=== PATIENT | female | born 1990 | race Caucasian/White ===

== ENCOUNTER 2017-03-21 20:36 | Emergency (ER) | payer SELFPAY ==
[~2017-03-21] VITALS: Ht 152.4 cm; Wt 97.1 kg
[~2017-03-21 20:36] MED LIST: AZIT250T6 PO; METR500T PO
[2017-03-21 20:45] VITALS: BP 117/81
--- NOTE | 2017-03-21 21:12 | PHYS DOC ---
Past Medical History Past Medical History: No Pertinent History Past Surgical History: No Surgical History Alcohol Use: None Drug Use: None Adult General Chief Complaint Chief Complaint: FOOT INJURY PAIN HPI HPI Patient is a 26 year old female with no significant medical history who presents today with right foot pain mostly along the right third and fourth metatarsals. Patient describes the pain as sharp. She rates the pain is mild. Patient states she was walking when she stepped on a rock rolled her foot and fell. Patient denies any loss of consciousness. Review of Systems Review of Systems Constitutional: Denies fever or chills [] Eyes: Denies change in visual acuity, redness, or eye pain [] HENT: Denies nasal congestion or sore throat [] Musculoskeletal: Right foot pain Integument: Denies rash or skin lesions [] Neurologic: Denies headache, focal weakness or sensory changes [] Endocrine: Denies polyuria or polydipsia [] Allergies Allergies Allergies Coded Allergies Type Severity Reaction Last Updated Verified Sulfa (Sulfonamide Antibiotics) Allergy Intermediate Hives 01/24/16 Yes Physical Exam Physical Exam Constitutional: Well developed, well nourished, no acute distress, non-toxic appearance. [] HENT: Normocephalic, atraumatic, bilateral external ears normal, oropharynx moist, no oral exudates, nose normal. [] Skin: Warm, dry, no erythema, no rash. [] Back: No tenderness, no CVA tenderness. [] Extremities: Right foot with no obvious deformity. Small amount of soft tissue swelling on the top of the right foot. Tenderness on palpation along the right third and fourth metatarsals. No pain or tenderness on palpation of the base of the fifth metatarsal of the right foot on navicular bone of the right foot. Full range of motion to the right foot and toes. +2 right pedal pulse. Cap refill less than 2 seconds the right lower extremity. Sensation intact to the right lower extremity. Neurologic: Alert and oriented X 3, normal motor function, normal sensory function, no focal deficits noted. [] Psychologic: Affect normal, judgement normal, mood normal. [] Current Patient Data Vital Signs Vital Signs Date Time Temp Pulse Resp B/P (MAP) Pulse Ox O2 Delivery O2 Flow Rate FiO2 03/21/17 20:45 98.3 100 18 96 Room Air 98.3 EKG EKG [] Radiology/Procedures Radiology/Procedures [] Course & Med Decision Making Course & Med Decision Making Pertinent Labs and Imaging studies reviewed. (See chart for details) Patient is in the ED with complaints of right foot pain after rolling it today. Right foot x-rays interpreted by are negative for any acute findings. Patient has right foot sprain. She was placed in the orthopedic shoe by the ED RN. Neurovascular exam done by me is normal, cap refill less than 2 seconds. Ice elevation encouraged. Follow-up with orthopedic doctor provided in one week. Dragon Disclaimer Dragon Disclaimer This electronic medical record was generated, in whole or in part, using a voice recognition dictation system. Departure Departure Impression: Primary Impression: Right foot sprain Additional Impression: Fall from standing Disposition: HOME, SELF-CARE Condition: STABLE Referrals: NO PCP (PCP) MARLYN MOSCOSO MD Follow-up in one week Patient Instructions: Foot Sprain-Brief Additional Instructions: You were seen for right foot sprain. Ice and elevate the extremity. Take over- the-counter Tylenol or Motrin as needed for pain. Wear the orthopedic shoe provided as tolerated. Follow-up with the provided orthopedic doctor in one week if pain continues. Scripts Naproxen (NAPROXEN) 500 Mg Tablet.dr 1 TAB PO BID, #60 TAB 2 Refills Prov: BATSHEVA SOSA APRN 03/21/17 Problem Qualifiers Primary Impression: Right foot sprain Encounter type: initial encounter Qualified Codes: S93.601A - Unspecified sprain of right foot, initial encounter Additional Impression: Fall from standing Encounter type: initial encounter Qualified Codes: W19.XXXA - Unspecified fall, initial encounter BATSHEVA SOSA APRN Mar 21, 2017 21:12
[2017-03-21] MEDS ORDERED: NAPR500T8 PO (21:41)
--- NOTE | 2017-03-22 07:35 | RAD ---
Right foot, 3 views, 03/21/2017: History: Injury, pain No fracture or dislocation is identified. There is mild generalized soft tissue swelling. IMPRESSION: No acute bony abnormality is detected.
== END 2017-03-21 21:46 | disposition home or self-care (01) ==
LOC: ER 20:36
DX: S93.601A Unspecified sprain of right foot, initial encounter (principal); Z88.2 Allergy status to sulfonamides; W18.39XA Other fall on same level, initial encounter; Y93.01 Activity, walking, marching and hiking; Y92.89 Other specified places as the place of occurrence of the external cause; Y99.8 Other external cause status
CPT/HCPCS: 73630; 99284

== ENCOUNTER 2019-06-26 16:54 | Emergency (ER) | payer SELFPAY ==
[~2019-06-26] VITALS: Ht 152.4 cm; Wt 104.3 kg
[~2019-06-26 16:54] MED LIST changes: +NAPR500T8 PO
[2019-06-26 17:17] VITALS: BP 141/75
[2019-06-26 17:49] LABS: BILIRUBIN,URINE NEGATIVE (NEG); CLARITY,URINE CLEAR; COLOR,URINE YELLOW; NITRITE,URINE NEGATIVE (NEG); PH,URINE 6.5; PROTEIN,URINE NEGATIVE (NEG-TRACE); UROBILINOGEN,URINE 0.2 mg/dL (0.2 mg/dL)
[2019-06-26 17:54] LABS: BACTERIA,URINE FEW /HPF (0-FEW); RBC,URINE 0 /HPF (0-2); SQUAMOUS EPITHELIAL CELL,UR MANY /LPF
[2019-06-26] MEDS ORDERED: CEPH500T PO (18:37)
--- NOTE | 2019-06-26 18:37 | PHYS DOC ---
Past Medical History Past Medical History: P.I.D. (SHEILABATSHEVA PERKINS) Past Surgical History: No Surgical History (SHEILABATSHEVA PERKINS) Alcohol Use: None Drug Use: None (BATSHEVA SOSA MADDIE) Adult General Chief Complaint Chief Complaint: ABDOMINAL PAIN HPI HPI Patient is a 28 year old female with no significant medical history who presents to the ED today complaining of 2 out of 10 cramping abdominal pain that began this afternoon. States most of the pain is on the lower abdomen. Denies any exacerbating or relieving factors though she states right now the pain has decreased. Denies any concern for STDs. (BATSHEVA SOSA MADDIE) Review of Systems Review of Systems Constitutional: Denies fever or chills [] Eyes: Denies change in visual acuity, redness, or eye pain [] HENT: Denies nasal congestion or sore throat [] Respiratory: Denies cough or shortness of breath [] Cardiovascular: No additional information not addressed in HPI [] GI: Reports low abdominal cramping, denies nausea, vomiting, bloody stools or diarrhea [] : Denies dysuria or hematuria [] Musculoskeletal: Denies back pain or joint pain [] Integument: Denies rash or skin lesions [] Neurologic: Denies headache, focal weakness or sensory changes [] All other systems were reviewed and found to be within normal limits, except as documented in this note. (BATSHEVA SOSA MADDIE) Allergies Allergies Allergies Coded Allergies Type Severity Reaction Last Updated Verified Sulfa (Sulfonamide Antibiotics) Allergy Intermediate Hives 01/24/16 Yes (NICK OROPEZA DO) Physical Exam Physical Exam Constitutional: Well developed, well nourished, no acute distress, non-toxic appearance. [] HENT: Normocephalic, atraumatic, bilateral external ears normal, oropharynx moist, no oral exudates, nose normal. [] Eyes: PERRLA, EOMI, conjunctiva normal, no discharge. [] Neck: Normal range of motion, no tenderness, supple, no stridor. [] Cardiovascular:Heart rate regular rhythm, no murmur [] Lungs & Thorax: Bilateral breath sounds clear to auscultation [] Abdomen: Bowel sounds normal, soft, no tenderness, no masses, no pulsatile masses. [] Skin: Warm, dry, no erythema, no rash. [] Back: No tenderness, no CVA tenderness. [] Extremities: No tenderness, no cyanosis, no clubbing, ROM intact, no edema. [] Neurologic: Alert and oriented X 3, normal motor function, normal sensory function, no focal deficits noted. [] Psychologic: Affect normal, judgement normal, mood normal. [] (BATSHEVA SOSA APRN) Current Patient Data Vital Signs Vital Signs Date Time Temp Pulse Resp B/P (MAP) Pulse Ox O2 Delivery O2 Flow Rate FiO2 06/26/19 17:17 98.6 99 16 141/75 (97) 96 Room Air 98.6 (NICK OROPEZA DO) Lab Values Laboratory Tests Test 06/26/19 17:14 06/26/19 17:15 Urine Collection Type Unknown Urine Color Yellow Urine Clarity Clear Urine pH 6.5 Urine Specific [place] 1.010 Urine Protein Negative mg/dL (NEG-TRACE) Urine Glucose (UA) Negative mg/dL (NEG) Urine Ketones (Stick) Negative mg/dL (NEG) Urine Blood Negative (NEG) Urine Nitrite Negative (NEG) Urine Bilirubin Negative (NEG) Urine Urobilinogen Dipstick 0.2 mg/dL (0.2 mg/dL) Urine Leukocyte Esterase Moderate (NEG) Urine RBC 0 /HPF (0-2) Urine WBC 1-4 /HPF (0-4) Urine Squamous Epithelial Cells Many /LPF Urine Bacteria Few /HPF (0-FEW) Urine Mucus Slight /LPF POC Urine HCG, Qualitative Hcg negative (Negative) (NICK OROPEZA DO) EKG EKG [] (BATSHEVA SOSA APRN) Radiology/Procedures Radiology/Procedures [] (BATSHEVA SOSA APRN) Course & Med Decision Making Course & Med Decision Making Pertinent Labs and Imaging studies reviewed. (See chart for details) This is a 28-year-old. Patient presented to the ED today complaining of lower abdominal pain that began today. Positive for UTI. Discharged with cephalexin. Tylenol/Motrin for pain or fever. (BATSHEVA SOSA APRN) Dragon Disclaimer Dragon Disclaimer This electronic medical record was generated, in whole or in part, using a voice recognition dictation system. (BATSHEVA SOSA APRN) Departure Departure Impression: Primary Impression: Urinary tract infection Disposition: 01 HOME, SELF-CARE Condition: STABLE Referrals: NO PCP (PCP) follow up with your doctor in 1-2 weeks Patient Instructions: Urinary Tract Infection Additional Instructions: You were seen for abdominal pain and noted to have urinary tract infection, please complete your antibiotics, follow-up with your own doctor in 1-2 weeks. Scripts Cephalexin (CEPHALEXIN) 500 Mg Tablet 1 TAB PO BID, #14 TAB Prov: BATSHEVA SOSA APRN 06/26/19 Attending Signature Attending Signature I have reviewed the PA/FURNITURE PACKER's note and plan of care. I was available for consultation as needed during the patient's visit in the emergency department. I agree with the clinical impression, plan, and disposition. (NIKC OROPEZA DO) Problem Qualifiers Primary Impression: Urinary tract infection Urinary tract infection type: site unspecified Hematuria presence: without hematuria Qualified Codes: N39.0 - Urinary tract infection, site not specified BATSHEVA SOSA APRN Jun 26, 2019 18:37 NICK OROPEZA DO Jun 27, 2019 03:57
== END 2019-06-26 18:58 | disposition home or self-care (01) ==
LOC: ER 16:54
DX: N39.0 Urinary tract infection, site not specified (principal); Z88.2 Allergy status to sulfonamides
CPT/HCPCS: 81001; 81025; 99284